=== PATIENT | female | born 1970 | race Caucasian/White ===

== ENCOUNTER 2021-10-12 13:33 | Emergency (ER) | payer OTHER, SELFPAY ==
[2021-10-12 14:09] VITALS: BP 145/61; PULSE 54; RESP 19; TEMP 36.6; O2SAT 100; BMI 40.3
--- NOTE | 2021-10-12 18:28 | ED_ITS ---
HPI - General Adult General Chief complaint: General Medical Stated complaint: fever itchy rash on hands exposed to covid Source: patient Mode of arrival: ambulatory Limitations: no limitations History of Present Illness HPI narrative: 51-year-old female presents with a rash that developed on her hands for approximately 1 day, is COVID positive, does have a history of lupus and fibromyalgia. Does not report any fevers, chills, dizziness, or any other concerning symptoms. Onset (ago): day(s) (1) Location: upper extremity Radiation: non-radiation Severity: mild Severity scale (1-10): 3 Quality: other (Itching) Pain Consistency: intermittent Relieving factors: none Associated symptoms: denies other symptoms Treatments prior to arrival: none Related Data Previous Rx's Medication Instructions Recorded prednisone 20 mg tablet 40 mg PO DAILY 4 Days #8 tab 10/12/21 Allergies Allergy/AdvReac Type Severity Reaction Status Date / Time aspirin [ASPIRIN] Allergy Severe RASH, Unverified 06/17/20 16:09 unspecified Penicillins Allergy Severe RASH Unverified 06/17/20 16:09 [PENICILLINS] penicillin V Allergy Unknown unspecified Verified 03/26/19 00:00 pregabalin [From Allergy Unknown SWELLING Unverified 06/17/20 16:09 LYRICA] Aspirin Allergy Unknown rash Uncoded 01/18/12 00:00 Penicillin Allergy Unknown rash Uncoded 01/18/12 00:00 Phenytoin Sodium Allergy Unknown rash Uncoded 03/26/19 00:00 Review of Systems Verdana 4l Review of Systems: Verdana 4d Verdana 4d Constitutional: No Fever, No Chills ENT/Mouth: Positive congestion, No Ear Pain, No Hoarseness, No sore throat Eyes: No Eye Pain, No Swelling, No Redness, No Foreign Body Cardiovascular: No Chest Pain, No SOB Respiratory: Positive Cough, No Dyspnea Gastrointestinal: No Nausea, No Vomiting, No Diarrhea, No abdominal Pain Genitourinary: No Dysuria, No Hematuria Musculoskeletal: positive joint pain, No Myalgias, No Joint Swelling Skin: No Skin lacerations, positive bilateral hand rash Neuro: No Weakness, No Numbness, No Paresthesias, No Loss of Consciousness, No Dizziness, No Headache Psych: No Anxiety/Panic, No Depression Heme/Lymph: no easy bruising, no Lymphadenopathy Endocrine: No Polyuria, No Polydipsia Yes all other systems are reviewed and are negative [facility] Past Medical History Attestation statement: The following information was validated with the patient. Source: old records reviewed Medical History Fibromyalgia Lupus Seizure Seizure disorder Social History Social History Advance Directives: No Advance Directives Information Provided: No Patient : No Physical Exam Verdana 4l Vital Signs: Verdana 4d Verdana 4d Vital Signs: Verdana 4d Verdana 4Bd Last Vital Signs Verdana 4d Workers Compensation Claims Analyst New 4d Workers Compensation Claims Analyst New 4d Temp 98 F 10/12/21 14:09 Workers Compensation Claims Analyst New 4d Pulse 54 10/12/21 14:09 Workers Compensation Claims Analyst NewNew 4d Resp 19 10/12/21 14:09 BP 145/61 H 10/12/21 14:09 Pulse Ox 100 10/12/21 14:09 BMI result Body Mass Index 40.3 Appearance: Alert. Oriented X3. No acute distress. Eyes: Pupils equal, round and reactive to light. Sclera nonicteric. ENT: Pharynx normal. No aphthous ulcerations, tongue midline and within normal limits. Neck: Normal inspection. Neck supple. No cervical lymphadenopathy. CVS: Normal heart rate and rhythm. Pulses normal. Respiratory: No respiratory distress. Breath sounds normal. Abdomen: Soft and nontender. Skin: Skin warm and dry. Normal skin color. Normal skin turgor. Extremities: No lower extremity edema. Gait well-balanced well coordinated Neuro: No motor deficit. No sensory deficit. Cranial nerves 2-12 intact Course Course Course Narrative: 51-year-old female has a medical history lupus, fibromyalgia, is COVID positive. Does not take any medications at this time. States the rash on her hand started last night, she noted some pain and itching. Does not have risk for syphilis at this time, no IVDA and has been monogamous. She has had a similar rash on her feet which was worked up by her tax examining technician. She feels that this rash is possibly lupus related. I did discuss this case with attending Dr. Loyd, patient has no other symptoms, no ulcerations in her mouth tongue is normal color without fissures or ulcerations, no cervical lymphadenopathy, PERRLA, EOMI, no scleral icterus. No wounds or lesions on her extremities with exception to the hands and feet. Patient is afebrile, appears nontoxic, speaking in complete sentences, alert oriented x4. Plan is for prednisone, Benadryl and for patient to follow-up with her tax examining technician. Patient verbalizes understanding of and agrees with plan of care discharge home. Understands signs symptoms indicating need for emergent intervention. Medical Decision Making Differential Diagnosis Differential Diagnosis: Viral exanthem, dermatitis, pityriasis Medical Records Medical records reviewed: Yes I reviewed the patient's medical records. Discharge Plan Discharge Clinical Impression: Viral exanthem Patient Disposition: Home, Self-Care Instructions: Viral Exanthem (ED) Additional Instructions: You were evaluated for rash that occurred on her hands over night. This could possibly be related to COVID-19 or lupus. We are treating you with prednisone 40 mg daily. We give your 1st dose in the emergency department. Please take your next dose tomorrow morning. Please take Benadryl 50 mg every 6 hours as needed for itching. You may consider taking Tylenol 650 mg every 6 hours as needed for pain management Please follow-up with your tax examining technician or whomever treats you for your lupus. Thank you for choosing this emergency department for evaluation. Please follow-up with primary care physician as needed. Return to the emergency department for any new, concerning, or worsening symptoms. Prescriptions: New prednisone 20 mg tablet 40 mg PO DAILY 4 Days Qty: 8 RF: 0
[2021-10-12] MEDS: predniSONE 20 MG TABLET 40 MG PO (19:12)
[2021-10-12] MEDS: diphenhydrAMINE HCL 25 MG TABLET 50 MG PO (19:13)
== END 2021-10-12 21:32 | disposition home or self-care (01) ==
PROVIDERS: Emergency Provider Emergency Medicine
DX: B09 Unspecified viral infection characterized by skin and mucous membrane lesions (principal); U07.1 COVID-19
CPT/HCPCS: 99283; Q0163